=== PATIENT | male | born 1965 | race Caucasian/White ===

== ENCOUNTER → 2021-03-31 | Outpatient (CLI) | payer OTHER ==
--- NOTE | 2021-03-31 09:28 | KCIC ---
Examination: MRI of the right knee without contrast HISTORY: History of right knee pain, lateral right knee pain for one month COMPARISON: None TECHNIQUE: Multiplanar, multisequence MR right knee was performed without contrast. FINDINGS: The anterior cruciate ligament, posterior cruciate ligament appears intact. The medial meniscus appea rs intact. There is a 8 mm high T1 signal structure extending superiorly and anteriorly from the ante rior horn of the lateral meniscus, nonspecific could be fatty fibrosis or fat.. The medial collateral ligament appears intact. Lateral collateral ligamentous complex including the fibular collateral lig ament, biceps femoris tendon, popliteus tendon. The extensor mechanism is intact. Small knee joint effusion is identified. There is deep fissuring of cartilage identified in the medial, lateral compartment with small subchondral cystic changes likely related to chondromalacia. The medial retinaculum, lateral retinaculum appears intact. Deep fissurin g of cartilage identified in the patellofemoral compartment. Small popliteal cyst identified. Moderate joint space loss medial, lateral compartment femoral compartments. IMPRESSION: 1. A 8 mm high T1 signal structure extending superiorly and anteriorly from the anterior horn of the lateral meniscus, nonspecific could be fatty fibrosis or fat. 2. Grade II chondromalacia medial, lateral, patellofemoral compartments. Moderate tricompartmental d egenerative changes. 3. Small knee joint effusion with a small popliteal cyst. Electronically signed by: Marcellus Gonzalez MD (03/31/2021 9:25 AM) [id number]
== END ==
LOC: KCIC MRI 07:53
PROVIDERS: ATTEND Family Medicine
DX: M17.11 Unilateral primary osteoarthritis, right knee (principal); M94.261 Chondromalacia, right knee; M25.461 Effusion, right knee; M71.21 Synovial cyst of popliteal space [Baker], right knee; M25.861 Other specified joint disorders, right knee
CPT/HCPCS: 73721